=== PATIENT | female | born 1935 | race Caucasian/White ===

== ENCOUNTER 2018-04-21 15:28 | Inpatient (IN) | payer MEDICARE ==
[~2018-04-21] VITALS: Ht 162.6 cm; Wt 100.3 kg
[~2018-04-21 15:28] MED LIST: ASA81 MG PO; ASPIR 8181 MG PO; DIOVAN320 MG PO; DULERA 200 MCG/13 GM IH; ESIDRIX25 MG PO; FUROSEMIDE40 MG PO; METOPROLOL SUCC50 MG PO; NEXIUM40 MG PO; OMEGA-31000 MG PO; TYLENOL WITH C1 EACH PO; Z.0.AMITRIPTYLINE H1; Z.0.CARAFATE1 GM; Z.0.LOTREL 5-10 MG1; Z.0.PREVACID30 MG
[2018-04-21 18:06] VITALS: BP 170/83
[2018-04-21] MEDS ORDERED: MEROPENEM 500 MG VIAL IV SCH (18:48)
[2018-04-21 19:20] LABS: BASOPHILS # (AUTO) 0.1 (0.0-0.1); BASOPHILS % 1.7 % (0.0-1.0); EOSINOPHILS # (AUTO) 0.5 (0.0-0.4); HEMATOCRIT 40.3 % (34.2-44.1); HEMOGLOBIN 13.1 g/dL (12.0-16.0); LYMPHOCYTES # (AUTO) 1.8 (1.0-3.2); MEAN CORPUSCULAR HEMOGLOBIN 29.4 pg (28-32); MEAN CORPUSCULAR HGB CONC 32.5 g/dL (31-35); MEAN CORPUSCULAR VOLUME 90.6 fL (81-99); MONOCYTES # (AUTO) 0.7 (0.2-0.8); MONOCYTES % 8.8 % (4.4-11.3); NEUTROPHILS # (AUTO) 4.3 (2.1-6.9); NEUTROPHILS % 58.2 % (38.7-80.0); PLATELET COUNT 239 x10e3/uL (140-360); RED BLOOD COUNT 4.45 x10e6/uL (3.6-5.1); RED CELL DISTRIBUTION WIDTH 14.4 % (11.7-14.4)
[2018-04-21 19:36] LABS: CALCIUM 10.1 mg/dL (8.4-10.2); CREATININE, SERUM 1.02 mg/dL (0.57-1.11)
[2018-04-21 20:00] VITALS: BP 182/98
[2018-04-21] MEDS: MEROPENEM 500 MG VIAL IV SCH (21:00)
[2018-04-21] MEDS: AMLODIPINE BESYLATE 10 MG TAB PO SCH (21:22)
[2018-04-21] MEDS: AMITRIPTYLINE HCL 10 MG TAB PO SCH (21:58)
[2018-04-21 22:10] VITALS: BP 182/98
[2018-04-21 22:59] VITALS: BP 182/98
[2018-04-22] VITALS (7 sets, daily range): BP systolic 145–167; BP diastolic 67–93
[2018-04-22] MEDS: MEROPENEM 500 MG VIAL IV SCH ×4 (03:00→21:03)
[2018-04-22] MEDS: ASPIRIN 81 MG CHEW TAB PO SCH (09:23)
[2018-04-22] MEDS: IRBESARTAN 150 MG TAB PO SCH (09:24)
[2018-04-22] MEDS: PANTOPRAZOLE SOD 40 MG TABEC PO SCH (09:24)
[2018-04-22] MEDS: OMEGA 3 POLYUNSAT FATTY ACIDS 1000 MG SOFTGEL PO SCH (09:24)
[2018-04-22] MEDS: FUROSEMIDE 40 MG TAB PO SCH (09:24)
--- NOTE | 2018-04-22 17:15 | History and Physical ---
REASON FOR ADMISSION: UTI, failed oral antibiotic. HISTORY OF PRESENT ILLNESS: This patient is an 82-year-old white female who is well known to me with history of recurrent UTI, who was on oral suppressive antibiotic. She tried several courses of oral antibiotic recently including Keflex and Cipro without any improvement. The patient was having urgency, frequency and pain upon urination, feeling chills, not feeling well. Patient was sent because she is failing oral antibiotic. The patient is currently lying in bed comfortably. PAST MEDICAL HISTORY: Hypertension, obesity, UTI before, incontinence. PAST SURGICAL HISTORY: Cholecystectomy, hysterectomy. ALLERGIES: NKA. SOCIAL HISTORY: There is no smoking, drug abuse, alcohol abuse. FAMILY HISTORY: Hypertension. MEDICATIONS: At home she is on Lasix, Protonix 40, Avapro 300, aspirin 81 mg, Elavil 10 mg daily, Norvasc 10 mg daily. REVIEW OF SYSTEMS HEENT: There is no headache, visual changes or hearing changes. GI: There is no nausea, no vomiting, no diarrhea. CARDIAC: There is no arrhythmia. NEURO: No seizure activity. PULMONARY: Negative. HEART: Negative. : Negative. SKIN: There is no other rash. OTHER: All other systems are normal except as mentioned above. PHYSICAL EXAMINATION: GENERAL: She is currently alert and oriented, does not seem to be in acute distress. VITALS: Stable, currently afebrile. HEENT: She is not icteric. NECK: Supple. CHEST: Clear. HEART: No murmur. ABDOMEN: Soft. Bowel sounds present. No tenderness. EXTREMITIES: No edema. IMPRESSION AND PLAN: Urinary tract infection, multidrug resistant. The plan is to give meropenem. Recheck urine cultures. Will arrange for 10 days of IV meropenem. PICC line. Will ask case management to assist. Other medical problems as above are stable. Continue all home medications. Will follow. Job#: [id number]
--- NOTE | 2018-04-22 19:42 | Diagnostic Imaging Report ---
EXAMINATION: CHEST XRAY LINE PLACEMENT 04/22/2018 6:57 PM COMPARISON: 06/30/2017 INDICATION: PICC line placement DISCUSSION: LINES: Left upper extremity PICC line has its tip near the cavoatrial junction LUNGS: The lungs are well inflated and clear. No pneumonia or pulmonary edema. PLEURA: No pleural effusion or pneumothorax. HEART AND MEDIASTINUM: Normal heart size. Atherosclerotic calcification of the thoracic aorta. BONES AND SOFT TISSUES: No acute osseous lesion. The soft tissues are normal. IMPRESSION: Left upper extremity PICC line has its tip in the cavoatrial junction. Benedicto Urrutia MD Signed by: Dr. Benedicto Urrutia M.D. on 04/22/2018 7:39 PM
[2018-04-22] MEDS: AMLODIPINE BESYLATE 10 MG TAB PO SCH (21:03)
[2018-04-22] MEDS: AMITRIPTYLINE HCL 10 MG TAB PO SCH (21:03)
[2018-04-23] VITALS: BP 156/72
[2018-04-23] MEDS: MEROPENEM 500 MG VIAL IV SCH ×4 (02:31→21:15)
[2018-04-23 04:00] VITALS: BP 125/61
[2018-04-23 08:00] VITALS: BP 140/65
[2018-04-23] MEDS: ASPIRIN 81 MG CHEW TAB PO SCH (09:18)
[2018-04-23] MEDS: IRBESARTAN 150 MG TAB PO SCH (09:19)
[2018-04-23] MEDS: PANTOPRAZOLE SOD 40 MG TABEC PO SCH (09:19)
[2018-04-23] MEDS: FUROSEMIDE 40 MG TAB PO SCH (09:19)
[2018-04-23] MEDS: OMEGA 3 POLYUNSAT FATTY ACIDS 1000 MG SOFTGEL PO SCH (09:19)
[2018-04-23 12:00] VITALS: BP 143/60
--- NOTE | 2018-04-23 14:34 | Diagnostic Imaging Report ---
Exam: PICC line placement A left upper extremity PICC line was placed by the PICC team. Signed by: Dr. Nahum Gatica DO on 04/23/2018 2:30 PM
[2018-04-23 16:00] VITALS: BP 161/70
[2018-04-23 20:00] VITALS: BP 180/84
[2018-04-23] MEDS: AMITRIPTYLINE HCL 10 MG TAB PO SCH (21:15)
[2018-04-23] MEDS: AMLODIPINE BESYLATE 10 MG TAB PO SCH (21:16)
[2018-04-24] VITALS (9 sets, daily range): BP systolic 134–176; BP diastolic 60–88
[2018-04-24] MEDS: MEROPENEM 500 MG VIAL IV SCH ×3 (03:20→15:35)
[2018-04-24] MEDS: FUROSEMIDE 40 MG TAB PO SCH (09:34)
[2018-04-24] MEDS: OMEGA 3 POLYUNSAT FATTY ACIDS 1000 MG SOFTGEL PO SCH (09:34)
[2018-04-24] MEDS: IRBESARTAN 150 MG TAB PO SCH (09:34)
[2018-04-24] MEDS: PANTOPRAZOLE SOD 40 MG TABEC PO SCH (09:34)
[2018-04-24] MEDS: ASPIRIN 81 MG CHEW TAB PO SCH (09:34)
[2018-04-24] MEDS ORDERED: AMLODIPINE BESYLATE 5 MG TAB PO STA (16:48)
--- NOTE | 2018-04-24 19:35 | Discharge Summary ---
REASON FOR ADMISSION: UTI. Patient who is a very pleasant 82-year-old well known to me with history of hypertension, history of obesity who has been having urgency and frequency. The patient has been on Keflex. She called me a few weeks ago because she was not feeling well with fever, chills, abdominal pain, urgency and frequency. The patient was given Cipro without improvement and then she was given Keflex without improvement. Patient is being admitted and started on IV meropenem. Urine cultures are obtained and blood cultures obtained. The patient currently did improve. She had no further problems. Patient is being discharged with IV antibiotic, meropenem 500 IV q.8. for 2 weeks. RUFUS PEÑA MD Job#: [id number] [facility]
== END 2018-04-24 18:57 | disposition home or self-care (01) | DRG 690 ==
LOC: MED/SURG3 17:24
PROVIDERS: ADMIT Internal Medicine Infectious Disease; ATTEND Internal Medicine Infectious Disease
PROC: 02HV33Z Insertion of Infusion Device into Superior Vena Cava, Percutaneous Approach (ICD-10-PCS; principal; 2018-04-22)
DX: N39.0 Urinary tract infection, site not specified (principal); I10 Essential (primary) hypertension; E66.9 Obesity, unspecified; Z68.38 Body mass index [BMI] 38.0-38.9, adult; Z87.440 Personal history of urinary (tract) infections; Z16.24 Resistance to multiple antibiotics; Z16.39 Resistance to other specified antimicrobial drug; F32.9 Major depressive disorder, single episode, unspecified; K21.9 Gastro-esophageal reflux disease without esophagitis
CPT/HCPCS: 36415; 36569; 71045; 80048; 85025; 87086; J2185